=== PATIENT | male | born 1995 | race Hispanic/Latino ===

== ENCOUNTER 2017-07-06 15:04 | Emergency (ER) | payer OTHER ==
[2017-07-06] MEDS ORDERED: CYCLOBENZAPRINE HCL 10 MG TABLET ONE (17:10)
[2017-07-06] MEDS ORDERED: DEXAMETHASONE SOD PHOSPHATE 10MG/ML 1ML VIAL ONE (17:10)
[2017-07-06] MEDS ORDERED: TRAMADOL HCL 50 MG TABLET ONE (17:11)
== END 2017-07-06 18:05 | disposition home or self-care (01) ==
LOC: EDH 15:04
DX: M54.5 Low back pain (principal)
CPT/HCPCS: 72100; 96372; 99284; J1100

== ENCOUNTER → 2017-07-26 | Outpatient (CLI) | payer SELFPAY | END | disposition home or self-care (01) | LOC: RAH 13:11 | PROVIDERS: ATTEND Family Medicine | DX: M47.896 Other spondylosis, lumbar region (principal); M51.26 Other intervertebral disc displacement, lumbar region | CPT/HCPCS: 72148 ==